=== PATIENT | female | born 2000 | race Caucasian/White ===

== ENCOUNTER 2020-10-13 15:24 | Inpatient (IN) | payer OTHER ==
[2020-10-13] MEDS ORDERED: DEXTROSE 5%-LACTATED RINGERS 1,000 ML IV SCH (16:20)
[2020-10-13] MEDS ORDERED: DEXTROSE 5%-LACTATED RINGERS 500 ML IV SCH (16:50)
[2020-10-13 18:14] VITALS: BMI 31.1
[2020-10-13 18:58] LABS: BASO % 0.4 % (0-2.0); HEMATOCRIT 37.6 % (32.4-45.2); HEMOGLOBIN 12.3 GM/dL (10.7-15.3); LYMPH % 14.6 % (8-40); MCHC 32.6 g/dl (32.0-36.0); MEAN PLT VOLUME 8.3 fl (7.5-11.1); MONO % 9.2 % (3.8-10.2); NEUT % 73.8 % (42.8-82.8); PLATELET COUNT 215 K/MM3 (134-434); RBC 4.38 M/mm3 (3.60-5.2); RDW 15.9 % (11.6-15.6); WHITE BLOOD COUNT 12.2 K/mm3 (4.0-10.0)
[2020-10-13 19:04] LABS: INR 0.92 (0.83-1.09); PROTHROMBIN TIME (PATIENT) 11.3 SEC (9.7-13.0)
[2020-10-13 19:07] LABS: ACTIVATED PTT 28.3 SECONDS (25.2-36.5)
[2020-10-13 19:17] LABS: CALCIUM 8.7 mg/dL (8.5-10.1)
[2020-10-13 19:18] LABS: BLOOD UREA NITROGEN 4.8 mg/dL (7-18)
[2020-10-13 19:21] LABS: CREATININE 0.4 mg/dL (0.55-1.3)
[2020-10-13] MEDS ORDERED: SODIUM CHLORIDE 1,000 ML IV STA ×2 (20:12→21:15)
[2020-10-13] MEDS ORDERED: CEFTRIAXONE 1 GM in DEXTROSE 5%-WATER - 50 ML IVPB ONE (20:29)
[2020-10-13] MEDS ORDERED: FENTANYL/BUPIVACAINE/NS/PF - PCEA - 50 ML DISP.SYRIN EP ONE (20:35)
[2020-10-13] MEDS ORDERED: PCA PUMP NR ONE (20:35)
[2020-10-13 20:40] LABS: HIV INTERPRETATION NEGATIVE (NEGATIVE)
[2020-10-13 20:44] LABS: ALBUMIN 2.5 g/dl (3.4-5.0)
[2020-10-13 20:47] LABS: BILIRUBIN,DIRECT 0.2 mg/dL (0.0-0.2)
[2020-10-13 20:49] LABS: BILIRUBIN,TOTAL 0.5 mg/dL (0.2-1); TOT PROT 6.4 g/dl (6.4-8.2)
[2020-10-13] MEDS ORDERED: OXYTOCIN 30 UNITS in 0.9% NS 30 UNIT/500 ML INFUS.BAG IVPB ONE (20:52)
[2020-10-13] MEDS: OXYTOCIN 30 UNITS in 0.9% NS 30 UNIT/500 ML INFUS.BAG IVPB SCH (20:55)
[2020-10-13] MEDS ORDERED: SODIUM CHLORIDE 500 ML IV STA (21:14)
[2020-10-13 21:18] LABS: LACTIC ACID 2.5 mmol/L (0.4-2.0)
[2020-10-13] MEDS ORDERED: BUPIVACAINE HCL/PF 0.25% (2.5MG/ML) 10 ML VIAL ONE (22:05)
[2020-10-13] MEDS: FENTANYL/BUPIVACAINE/NS/PF - PCEA - 50 ML DISP.SYRIN EP SCH (22:20)
[2020-10-13] MEDS ORDERED: NALOXONE HCL 0.4 MG/ML VIAL IVPUSH PRN (22:27)
[2020-10-13 23:30] LABS: PH,URINE 7.5 (5.0-8.0); URINE APPEARANCE CLEAR; URINE BILIRUBIN NEGATIVE (NEGATIVE); URINE COLOR YELLOW; URINE GLUCOSE (UA) NEGATIVE (NEGATIVE); URINE KETONE 1+ (NEGATIVE); URINE LEUK ESTERASE NEGATIVE (NEGATIVE); URINE NITRITE NEGATIVE (NEGATIVE); URINE PROTEIN NEGATIVE (NEGATIVE); URINE UROBILINOGEN 0.2 mg/dL (0.2-1.0)
[2020-10-13] MEDS ORDERED: LIDOCAINE HCL 1% PRESERVATIVE FREE - 30ML VIAL ONE (23:45)
[2020-10-13] MEDS ORDERED: OXYTOCIN 20 UNITS in 0.9% NS 20 UNIT/1,000 ML INFUS.BAG IV ONE (23:45)
[2020-10-14] MEDS ORDERED: BISACODYL 10 MG SUPP.RECT RC PRN (00:40)
[2020-10-14] MEDS ORDERED: BENZOCAINE 20% 57 GM BOTTLE TP PRN (00:40)
[2020-10-14] MEDS ORDERED: BENZOCAINE 28 GM HEMORRHOIDAL OINTMENT TP PRN (00:40)
[2020-10-14] MEDS ORDERED: METHYLERGONOVINE MALEATE 0.2 MG/1 ML AMP IM PRN (00:40)
[2020-10-14] MEDS ORDERED: WITCH HAZEL 50% (TUCKS) 40 PAD/JAR PAD TP PRN (00:40)
[2020-10-14] MEDS ORDERED: D5W-LR W/ 20 UNITS OXYTOCIN 20 UNIT/1,000 ML INFUS.BAG IV SCH (00:45)
[2020-10-14] MEDS ORDERED: OXYTOCIN 20 UNITS in 0.9% NS 20 UNIT/1,000 ML INFUS.BAG IV SCH (01:00)
[2020-10-14 01:06] LABS: CORD BASE EXCESS -7.4 mmol/L (0-2); CORD HCO3 19.1 mmHg (20-29); CORD PCO2 42.4 mmHg (30-78); CORD pH 7.272 (7.14-7.44)
[2020-10-14 01:07] LABS: CORD BASE EXCESS -5.9 mmol/L (0-2); CORD HCO3 21.2 mmHg (20-29); CORD PCO2 47.5 mmHg (30-78); CORD pH 7.268 (7.14-7.44)
[2020-10-14] MEDS: ACETAMINOPHEN 325 MG TABLET (FP) PO PRN ×3 (03:26→18:28)
[2020-10-14 07:02] LABS: BASO % 0.2 % (0-2.0); EOS % 0.2 % (0-4.5); HEMATOCRIT 32.7 % (32.4-45.2); HEMOGLOBIN 10.9 GM/dL (10.7-15.3); LYMPH % 6.5 % (8-40); MCH 28.7 pg (25.7-33.7); MCHC 33.2 g/dl (32.0-36.0); MEAN CELL VOLUME 86.4 fl (80-96); MEAN PLT VOLUME 8.5 fl (7.5-11.1); MONO % 8.6 % (3.8-10.2); NEUT % 84.5 % (42.8-82.8); PLATELET COUNT 177 K/MM3 (134-434); RBC 3.79 M/mm3 (3.60-5.2); RDW 15.8 % (11.6-15.6); WHITE BLOOD COUNT 16.4 K/mm3 (4.0-10.0)
[2020-10-14] MEDS ORDERED: SODIUM CHLORIDE 1,000 ML IV STA (08:20)
[2020-10-14] MEDS: FERROUS SO4 325 MG TABLET (FP) PO SCH ×2 (09:37→22:10)
[2020-10-14] MEDS: IBUPROFEN 600 MG TABLET (FP) PO PRN ×2 (09:37→18:27)
[2020-10-14] MEDS: PRENATAL VITAMINS W/ FOLIC ACID TABLET (FP) PO SCH (11:03)
[2020-10-14] MEDS: OXYTOCIN 30 UNITS in 0.9% NS 30 UNIT/500 ML INFUS.BAG IVPB SCH (23:30)
[2020-10-14] MEDS: FENTANYL/BUPIVACAINE/NS/PF - PCEA - 50 ML DISP.SYRIN EP SCH (23:30)
[2020-10-15] MEDS: FERROUS SO4 325 MG TABLET (FP) PO SCH (09:49)
[2020-10-15] MEDS: PRENATAL VITAMINS W/ FOLIC ACID TABLET (FP) PO SCH (09:49)
[2020-10-15] MEDS: IBUPROFEN 600 MG TABLET (FP) PO PRN (09:49)
[2020-10-15] MEDS: ACETAMINOPHEN 325 MG TABLET (FP) PO PRN (09:50)
[2020-10-15 10:32] VITALS: BP 129/76; PULSE 122; TEMP 98.9
[2020-10-15] MEDS ORDERED: AMOX TR/POT CLAV 875MG/125MG TABLETS (FP) PO SCH (17:30)
[2020-10-15] MEDS ORDERED: SENNOSIDES/DOCUSATE COMBO (SENNA PLUS) TABLET (UD) PO PRN (22:00)
== END 2020-10-15 14:55 | disposition home or self-care (01) | DRG 560 ==
LOC: JDEL 15:24 → JLDR 18:00 → J3N 10-14 02:42
PROVIDERS: ADMIT Internal Medicine; ATTEND Internal Medicine
PROC: 10E0XZZ Delivery of Products of Conception, External Approach (ICD-10-PCS; principal; 2020-10-13)
PROC: 0KQM0ZZ Repair Perineum Muscle, Open Approach (ICD-10-PCS; 2020-10-13)
DX: O70.1 Second degree perineal laceration during delivery (principal); O99.892 Other specified diseases and conditions complicating childbirth; R00.0 Tachycardia, unspecified; O69.1XX0 Labor and delivery complicated by cord around neck, with compression, not applicable or unspecified; D72.829 Elevated white blood cell count, unspecified; R35.0 Frequency of micturition; Z3A.39 39 weeks gestation of pregnancy; Z37.0 Single live birth; Z20.822 Contact with and (suspected) exposure to COVID-19
CPT/HCPCS: 36415; 36600; 59409; 71045-TC-FY; 71275-TC; 80048; 80076; 81003; 82803; 83605; 83615; 84436; 84443; 85025; 85610; 85730; 86769; 86780; 86850; 86900; 86901; 87040; 87086; 87389; 87804; 93005; 93010; 93306-TC; C9803; Q9967; U0003; U0005

== ENCOUNTER 2024-01-05 00:25 | Inpatient (IN) | payer OTHER ==
[2024-01-05] MEDS: ELECTROLYTE-148 SOLN 1,000 ML IV SCH (01:30)
[2024-01-05 01:34] LABS: BASO % 0.6 % (0-2.0); EOS % 0.6 % (0-4.5); HEMATOCRIT 35.8 % (32.4-45.2); HEMOGLOBIN 11.8 GM/dL (10.7-15.3); LYMPH % 9.8 % (8-40); MCH 25.7 pg (25.7-33.7); MCHC 32.9 g/dl (32.0-36.0); MEAN CELL VOLUME 78.2 fl (80-96); MEAN PLT VOLUME 7.7 fl (7.5-11.1); MONO % 6.3 % (3.8-10.2); NEUT % 82.7 % (42.8-82.8); PLATELET COUNT 294 10^3/uL (134-434); RBC 4.58 M/mm3 (3.60-5.2); RDW 17.5 % (11.6-15.6); WHITE BLOOD COUNT 12.3 K/mm3 (4.0-10.0)
[2024-01-05 01:40] VITALS: RESP 18; BMI 30.2
[2024-01-05] MEDS ORDERED: AMPICILLIN SODIUM 2 GM VIAL ONE (01:40)
[2024-01-05 01:41] LABS: INR 0.92 (0.83-1.09); PROTHROMBIN TIME (PATIENT) 10.4 SEC (9.7-13.0)
[2024-01-05 01:43] LABS: ACTIVATED PTT 26.7 SECONDS (25.2-36.5)
[2024-01-05] MEDS: AMPICILLIN - 2 GM in SODIUM CHLORIDE 100 ML IVPB ONE (01:50)
[2024-01-05 01:54] LABS: POTASSIUM 3.7 mmol/L (3.5-5.1)
[2024-01-05 01:55] LABS: CALCIUM 8.9 mg/dL (8.5-10.1)
[2024-01-05 01:59] LABS: CREATININE 0.4 mg/dL (0.55-1.3)
[2024-01-05 02:12] LABS: METHADONE, UR NEGATIVE (NEGATIVE); OPIATES, URI NEGATIVE (NEGATIVE); PHENCYCLIDINE,URINE NEGATIVE (NEGATIVE); URINE BENZODIAZEPINES NEGATIVE (NEGATIVE)
[2024-01-05 02:13] LABS: URINE BARBITURATES NEGATIVE (NEGATIVE)
[2024-01-05 02:25] LABS: COCAINE, UR NEGATIVE (NEGATIVE); URINE AMPHETAMINES NEGATIVE (NEGATIVE)
[2024-01-05] MEDS ORDERED: FENTANYL/BUPIVACAINE/NS/PF - PCEA - 50 ML DISP.SYRIN EP ONE (02:37)
[2024-01-05] MEDS ORDERED: OXYTOCIN 10 UNITS/ML VIAL ONE (02:59)
[2024-01-05] MEDS ORDERED: NALOXONE HCL 0.4 MG/ML VIAL IVPUSH PRN (03:01)
[2024-01-05] MEDS: FENTANYL/BUPIVACAINE/NS/PF - PCEA - 50 ML DISP.SYRIN EP SCH (03:05)
[2024-01-05] MEDS ORDERED: OXYTOCIN 20 UNITS in 0.9% NS 20 UNIT/1,000 ML INFUS.BAG IV ONE (03:09)
[2024-01-05] MEDS ORDERED: LIDOCAINE HCL 1% PRESERVATIVE FREE - 30ML VIAL ONE (03:09)
[2024-01-05] MEDS: OXYTOCIN 20 UNITS in 0.9% NS 20 UNIT/1,000 ML INFUS.BAG IV SCH (03:10)
[2024-01-05] MEDS ORDERED: BISACODYL 10 MG SUPP.RECT RC PRN (03:40)
[2024-01-05] MEDS ORDERED: METHYLERGONOVINE MALEATE 0.2 MG/1 ML AMP IM PRN (03:40)
[2024-01-05] MEDS ORDERED: ACETAMINOPHEN 325 MG TABLET (FP) PO PRN (03:40)
[2024-01-05] MEDS ORDERED: WITCH HAZEL 50% (TUCKS) 40 PAD/JAR PAD TP PRN (03:40)
[2024-01-05] MEDS ORDERED: oxyCODONE HCL 5 MG TABLET PO PRN (03:40)
[2024-01-05] MEDS: IBUPROFEN 600 MG TABLET (FP) PO PRN (04:40)
[2024-01-05] MEDS ORDERED: AMPICILLIN - 1 GM in SODIUM CHLORIDE 100 ML IVPB SCH (04:55)
[2024-01-05] MEDS: PRENATAL VITAMINS W/ FOLIC ACID TABLET (FP) PO SCH (09:18)
[2024-01-05] MEDS: FERROUS SO4 325 MG TABLET (FP) PO SCH (09:18)
[2024-01-05] MEDS: BENZOCAINE 20% 57 GM BOTTLE TP PRN (09:18)
[2024-01-05] MEDS: BENZOCAINE 28 GM HEMORRHOIDAL OINTMENT TP PRN (09:19)
[2024-01-06 07:38] LABS: BASO % 0.5 % (0-2.0); EOS % 2.3 % (0-4.5); HEMATOCRIT 33.1 % (32.4-45.2); HEMOGLOBIN 10.7 GM/dL (10.7-15.3); LYMPH % 17.2 % (8-40); MCH 25.8 pg (25.7-33.7); MCHC 32.4 g/dl (32.0-36.0); MEAN CELL VOLUME 79.9 fl (80-96); PLATELET COUNT 248 10^3/uL (134-434); RBC 4.15 M/mm3 (3.60-5.2); RDW 17.1 % (11.6-15.6); WHITE BLOOD COUNT 10.8 K/mm3 (4.0-10.0)
[2024-01-06] MEDS ORDERED: SENNOSIDES/DOCUSATE COMBO (SENNA PLUS) TABLET (UD) PO PRN (22:00)
[2024-01-07 10:19] VITALS: BP 124/80; PULSE 100; TEMP 98
== END 2024-01-07 13:47 | disposition home or self-care (01) | DRG 560 ==
LOC: JDEL 00:25 → JLDR 00:55 → J3W 05:28
PROVIDERS: ADMIT Family Medicine; ATTEND Family Medicine
PROC: 10E0XZZ Delivery of Products of Conception, External Approach (ICD-10-PCS; principal; 2024-01-05)
PROC: 0HQ9XZZ Repair Perineum Skin, External Approach (ICD-10-PCS; 2024-01-05)
DX: O70.0 First degree perineal laceration during delivery (principal); Z3A.39 39 weeks gestation of pregnancy; Z37.0 Single live birth
CPT/HCPCS: 36415; 59409; 80048; 80307; 85025; 85610; 85730; 86780; 86850; 86900; 86901